=== PATIENT | female | born 1970 | race Caucasian/White ===

== ENCOUNTER 2019-12-12 08:23 | Day surgery (SDC) | payer OTHER ==
[~2019-12-12 08:23] MED LIST: 50% Dextrose in Water 50 ML Syringe IVPUSH PRN; Albuterol 0.083% 2.5 MG/3 ML Neb Soln NEB PRN; Atropine 0.1 MG/ML 10 ML Syringe IVPUSH PRN; EPINEPHrine 1:10,000 1 MG/10 ML Syringe IVPUSH PRN; Lactated Ringers 1,000 ML IV SCH; Naloxone 0.4 MG/ML Syringe IVPUSH PRN; Sodium Chloride 0.9% 10 ML SDV IV PRN; Sodium Chloride 0.9% 10 ML Syringe FLUSH PRN; Sodium Chloride 0.9% 2.5 ML Syringe FLUSH PRN; fentaNYL 100 MCG/2 ML SDV IVPUSH PRN
--- NOTE | 2019-12-12 09:32 | PCM.PREANE ---
Preanesthetic Assessment - Anesthesia/Transfusion/Family Hx Anesthesia History: Prior Anesthesia Without Reaction Family History of Anesthesia Reaction: No Transfusion History: No Prior Transfusion(s) - Review of Systems General: No Symptoms Pulmonary: No Symptoms Cardiovascular: No Symptoms Gastrointestinal: No Symptoms Neurological: No Symptoms Other: Reports: None - Physical Assessment NPO Status Date: 12/11/19 NPO Status Time: 23:00 Vital Signs: Last Vital Signs Temp 97.3 F 12/12/19 08:32 Pulse 94 12/12/19 08:32 Resp 18 12/12/19 08:32 BP 139/91 H 12/12/19 08:32 Pulse Ox 96 12/12/19 08:32 Height: 5 ft 4.5 in Weight: 76.204 kg ASA Class: 2 Mental Status: Alert & Oriented x3 Airway Class: Mallampati = 2 Dentition: Reports: Broken Tooth/Teeth ROM/Head Extension: Full Lungs: Clear to Auscultation, Normal Respiratory Effort Cardiovascular: Regular Rate, Regular Rhythm - Lab Values: Laboratory Last Values WBC 6.26 K/uL (4.0-11.0) 12/12/19 08:45 RBC 4.17 M/uL (4.30-5.90) L 12/12/19 08:45 Hgb 12.8 g/dL (12.0-16.0) 12/12/19 08:45 Hct 39.6 % (36.0-46.0) 12/12/19 08:45 MCV 95.0 fL (80.0-98.0) 12/12/19 08:45 MCH 30.7 pg (27.0-32.0) 12/12/19 08:45 MCHC 32.3 g/dL (31.0-37.0) 12/12/19 08:45 RDW Std Deviation 50.9 fl (28.0-62.0) 12/12/19 08:45 RDW Coeff of Jose 15 % (11.0-15.0) 12/12/19 08:45 Plt Count 268 K/uL (150-400) 12/12/19 08:45 MPV 12.20 fL (7.40-12.00) H 12/12/19 08:45 Nucleated RBC % 0.0 /100WBC 12/12/19 08:45 Nucleated RBCs # 0 K/uL 12/12/19 08:45 HCG, Qual NEGATIVE (NEG) 12/12/19 08:45 - Allergies Allergies/Adverse Reactions: Allergies Allergy/AdvReac Type Severity Reaction Status Date / Time No Known Allergies Allergy Verified 12/05/19 11:59 - Blood Blood Available: No - Anesthesia Plan Pre-Op Medication Ordered: None - Acknowledgements Anesthesia Type Planned: General Anesthesia Pt an Appropriate Candidate for the Planned Anesthesia: Yes Alternatives and Risks of Anesthesia Discussed w Pt/Guardian: Yes Pt/Guardian Understands and Agrees with Anesthesia Plan: Yes Additional Comments: pmh: borderline htn, being watched, on no meds PLAN: ga/lma PreAnesthesia Questionnaire HEENT History: Reports: Other (See Below) Other HEENT History: wears glasses Cardiovascular History: Reports: Other (See Below) Other Cardiovascular History: palpatations Respiratory History: Reports: None Gastrointestinal History: Reports: None Genitourinary History: Reports: None [employer] History: Reports: Musculoskeletal History: Reports: Arthritis Neurological History: Reports: None Psychiatric History: Reports: Anxiety, Depression Endocrine/Metabolic History: Reports: None Hematologic History: Reports: None Immunologic History: Reports: None Oncologic (Cancer) History: Reports: None Dermatologic History: Reports: None - Past Surgical History Head Surgeries/Procedures: Reports: None HEENT Surgical History: Reports: None Cardiovascular Surgical History: Reports: None Respiratory Surgical History: Reports: None GI Surgical History: Reports: None Female Surgical History: Reports: None Endocrine Surgical History: Reports: None Neurological Surgical History: Reports: Spinal Fusion Musculoskeletal Surgical History: Reports: Other (See Below) Other Musculoskeletal Surgeries/Procedures:: Hair removed from lt fingers/hands Oncologic Surgical History: Reports: None Dermatological Surgical History: Reports: None - SUBSTANCE USE Smoking Status *Q: Current Every Day Smoker Tobacco Use Within Last Twelve Months: Cigarettes Recreational Drug Use History: No - HOME MEDS Home Medications: Home Meds DULoxetine [Cymbalta] 60 mg PO DAILY 05/03/14 [History] Herbal Supplements 1 dose PO DAILY 11/21/19 [History] L.acidoph,Paracasei, B.lactis [Probiotic] 1 tab PO DAILY 11/21/19 [History] Multivitamin [Multivitamins] 1 tab PO DAILY 11/21/19 [History] Cider Vinegar [Apple Cider Vinegar] 1 tab PO DAILY 11/23/19 [History] - CURRENT (IN HOUSE) MEDS Current Meds: Current Medications Albuterol (Proventil Neb Soln) 2.5 mg NEB ONETIME PRN PRN Reason: Wheezing Atropine Sulfate (Atropine 0.1 Mg/Ml) 0.5 mg IVPUSH ASDIRECTED PRN PRN Reason: Hypo-perfusion Atropine Sulfate (Atropine 0.1 Mg/Ml) 1 mg IVPUSH ASDIRECTED PRN PRN Reason: Hypo-Perfusion Dextrose/Water (Dextrose 50% In Water) 50 ml IVPUSH ASDIRECTED PRN PRN Reason: Hypoglycemia Epinephrine HCl (Epinephrine 1:10,000) 1 mg IVPUSH ASDIRECTED PRN PRN Reason: ACLS Guidelines Fentanyl (Sublimaze) 50 - 100 mcg IVPUSH Q5M PRN PRN Reason: Pain Lactated Ringer's (Ringers, Lactated) 1,000 mls @ 125 mls/hr IV ASDIRECTED MO Last Admin: 12/12/19 08:35 Dose: 125 mls/hr Naloxone HCl (Narcan) 0.1 mg IVPUSH ASDIRECTED PRN PRN Reason: Respiratory Depression Sodium Chloride (Saline Flush) 10 ml FLUSH ASDIRECTED PRN PRN Reason: Keep Vein Open Sodium Chloride (Saline Flush) 2.5 ml FLUSH ASDIRECTED PRN PRN Reason: Keep Vein Open Sodium Chloride (Normal Saline) 10 ml IV ASDIRECTED PRN PRN Reason: IV Use
[2019-12-12] MEDS ORDERED: Propofol 200 MG/20 ML SDV ONE ×2 (10:48→10:59)
[2019-12-12] MEDS ORDERED: fentaNYL 100 MCG/2 ML SDV ONE (10:48)
[2019-12-12] MEDS ORDERED: Midazolam 1 MG/ML 2 ML SDV ONE (10:48)
[2019-12-12] MEDS ORDERED: Lidocaine 2% 5 ML SDV ONE (10:48)
--- NOTE | 2019-12-12 12:09 | PCM.OPNOTE ---
- General Post-Op/Procedure Note Date of Surgery/Procedure: 12/12/19 Operative Procedure(s): Loop Electrosurgical Excision Procedure Findings: Normal-appearing cervix. Pre Op Diagnosis: Pap negative pathology, +HPV 16. Endocervical curettage ITZ 2. Cervical biopsy ITZ 1 Post-Op Diagnosis: Pap negative pathology, +HPV 16. Endocervical curettage ITZ 2. Cervical biopsy ITZ 1 Anesthesia Technique: Moderate Sedation Primary Surgeon: Nathalie Kim Pathology: Cervix, LEEP, long stitch at 12:00, short stitch at 6:00 Fluid Replacement, Intraop: 900 EBL in mLs: 5 Complications: None Condition: Good
--- NOTE | 2019-12-12 12:34 | PCM.POSTAN ---
POST ANESTHESIA ASSESSMENT - MENTAL STATUS Mental Status: Alert, Oriented - VITAL SIGNS Vital Signs: Last Vital Signs Temp 97.7 F 12/12/19 12:00 Pulse 74 12/12/19 12:15 Resp 13 12/12/19 12:15 BP 125/68 12/12/19 12:15 Pulse Ox 97 12/12/19 12:15 - RESPIRATORY Respiratory Status: Respiratory Rate WNL, Airway Patent, O2 Saturation Stable - CARDIOVASCULAR CV Status: Pulse Rate WNL, Blood Pressure Stable - GASTROINTESTINAL GI Status: No Symptoms - POST OP HYDRATION Hydration Status: Adequate & Stable
--- NOTE | 2019-12-12 12:41 | PCM48HPAN ---
Post Anesthesia Note - EVALUATION WITHIN 48HRS OF ANESTHETIC Vital Signs in Normal Range: Yes Patient Participated in Evaluation: Yes Respiratory Function Stable: Yes Airway Patent: Yes Cardiovascular Function Stable: Yes Hydration Status Stable: Yes Pain Control Satisfactory: Yes Nausea and Vomiting Control Satisfactory: Yes Mental Status Recovered: Yes Vital Signs: Last Vital Signs Temp 97.7 F 12/12/19 12:00 Pulse 74 12/12/19 12:15 Resp 13 12/12/19 12:15 BP 125/68 12/12/19 12:15 Pulse Ox 97 12/12/19 12:15
--- NOTE | 2019-12-13 01:09 | OR ---
SURGEON: Nathalie Kim MD DATE OF PROCEDURE: 12/12/2019 PREOPERATIVE DIAGNOSES: 1. Pap with negative pathology and positive HPV 16. 2. Endocervical curettage with ITZ 2 on colposcopy. 3. Cervical biopsy with ITZ 1 on colposcopy. POSTOPERATIVE DIAGNOSES: 1. Pap with negative pathology and positive HPV 16. 2. Endocervical curettage with ITZ 2 on colposcopy. 3. Cervical biopsy with ITZ 1 on colposcopy. PROCEDURE PERFORMED: Loop electrosurgical excision procedure of the cervix. PRIMARY SURGEON: Nathalie Kim MD ANESTHESIA: Moderate sedation 4 mL of lidocaine. IV FLUIDS: 900 mL. ESTIMATED BLOOD LOSS: Less than 5 mL. SPECIMENS: Cervix long stitch at 12 o'clock, short stitch at 6 o'clock. FINDINGS: Normal-appearing cervix. DESCRIPTION OF PROCEDURE: The patient was taken to the operating room and placed in the dorsal lithotomy position with legs in Yellofin stirrups. Moderate sedation was administered. She was prepared and draped in the usual manner. An insulated speculum was then inserted into the vagina to expose the cervix. The sidewall retractor was also inserted to help facilitate improved visualization of the cervix. Cervix was prepped with Betadine under direct visualization. The cervix was infiltrated with a total of 4 mL of lidocaine at several points around the periphery of the cervical os. A 15 mm x 12 mm loop electrode was then obtained and a specimen was removed using a current of 60 W cutting and 65 W coagulation. Minimal bleeding was noted. Additional surrounding epithelium was cauterized with ball electrode. All instruments were removed. The patient was awakened from anesthesia and taken to recovery room in stable condition. [id number] / MODL /[id number]
[2019-12-13] MEDS ORDERED: Non-Formulary Medication 1 Each (Multivitamin [Multivitamins] 1 TAB) PO SCH (09:00)
[2019-12-13] MEDS ORDERED: ACIDOPH PARACASEI B LACTIS PO SCH (09:00)
[2019-12-13] MEDS ORDERED: CIDER VINEGAR PO SCH (09:00)
[2019-12-13] MEDS ORDERED: DULoxetine 30 MG Cap PO SCH (09:00)
== END 2019-12-12 13:00 | disposition home or self-care (01) ==
LOC: MW.SDS 08:23
PROVIDERS: ATTEND Obstetrics & Gynecology
DX: N87.1 Moderate cervical dysplasia (principal); B37.3 Candidiasis of vulva and vagina; I10 Essential (primary) hypertension; F41.8 Other specified anxiety disorders; F17.210 Nicotine dependence, cigarettes, uncomplicated; Z98.890 Other specified postprocedural states; Z79.899 Other long term (current) drug therapy
CPT/HCPCS: 36415; 57522; 84703; 85027; 88307; J2001; J2250; J2704; J3010; J7120; 00940

== ENCOUNTER 2023-06-15 17:18 | Emergency (ER) | payer OTHER | END 2023-06-15 20:06 | disposition left against medical advice (07) | LOC: MW.ED 17:18 | DX: H01.005 Unspecified blepharitis left lower eyelid (principal); H01.00A Unspecified blepharitis right eye, upper and lower eyelids | CPT/HCPCS: 99283 ==